=== PATIENT | male | born 1970 | race Caucasian/White ===

== ENCOUNTER 2016-09-21 09:45 | Inpatient (IN) | payer OTHER ==
[~2016-09-21] VITALS: Ht 170.2 cm; Wt 81.2 kg
[~2016-09-21 09:45] MED LIST: HYDROCODON-ACE1 EAC7 PO; TRAMADOL HCL50 MG PO; VOLTAREN75 MG PO; ZANAFLEX4 M1 PO
[2016-09-21 10:18] VITALS: BP 149/88
[2016-09-21 10:29] LABS: HEMATOCRIT 50.4 % (38.0-50.0); MCH 34.3 PG (29.0-34.0); MCHC 34.1 G/DL (30.0-36.0); MCV 100.6 FL (86-99); MEAN PLAT.VOLUME 8.9 uM^3 (9.0-12.4); PLATELET COUNT 263 K/uL (156-360); RBC DIS.WIDTH-CV 13.9 % (11.8-14.6); RBC DIS.WIDTH-SD 51.2 % (39-53); RED BLOOD COUNT 5.01 M/uL (4.00-5.50); WHITE BLOOD COUNT 5.8 K/uL (4.1-10.2)
[2016-09-21 10:48] LABS: PROTHROMBIN TIME 10.3 (9.2-11.2); PTT 24.5 (25-32)
[2016-09-21 15:29] VITALS: BP 131/84
[2016-09-21 19:59] VITALS: BP 127/89
[2016-09-21 20:14] VITALS: BP 165/71
[2016-09-22 00:12] VITALS: BP 143/77
[2016-09-22 04:46] VITALS: BP 160/76
[2016-09-22 08:10] VITALS: BP 132/87
== END 2016-09-22 12:14 | disposition home or self-care (01) | DRG 483 ==
LOC: 3EAST 09:45 → 2SOUTH 09:45 → 3EAST 14:47 → 2SOUTH 14:55 → 3EAST 09-22 12:14
PROVIDERS: Orthopaedic Surgery
PROC: 0RRJ0J6 Replacement of Right Shoulder Joint with Synthetic Substitute, Humeral Surface, Open Approach (ICD-10-PCS; principal; 2016-09-21)
DX: M19.011 Primary osteoarthritis, right shoulder (principal); M54.9 Dorsalgia, unspecified; F17.210 Nicotine dependence, cigarettes, uncomplicated
CPT/HCPCS: 85027; 85610; 85730; C1776; J0690; J1100; J2250; J2405; J2795; J3010; J7050; J7120; S0020

== ENCOUNTER 2017-07-26 15:53 | Emergency (ER) | payer OTHER ==
[~2017-07-26] VITALS: Ht 167.6 cm; Wt 81.9 kg
[2017-07-26] MEDS ORDERED: NAPROXEN500 MG PO (17:09)
[2017-07-26] MEDS ORDERED: PERCOCET 5/31 TABLET PO (17:09)
[2017-07-26 18:17] VITALS: BP 148/99
== END 2017-07-26 18:18 | disposition home or self-care (01) ==
LOC: EME 15:53
DX: S20.211A Contusion of right front wall of thorax, initial encounter (principal); W01.198A Fall on same level from slipping, tripping and stumbling with subsequent striking against other object, initial encounter; Z96.611 Presence of right artificial shoulder joint
CPT/HCPCS: 71046; 99281; 99283

== ENCOUNTER 2017-08-26 00:26 | Emergency (ER) | payer OTHER ==
[~2017-08-26] VITALS: Ht 167.6 cm; Wt 80.1 kg
[~2017-08-26 00:26] MED LIST changes: +NAPROXEN500 MG PO; +PERCOCET 5/31 TABLET PO
[2017-08-26 01:20] LABS: CHLORIDE 106 mEq/L (99-109); POTASSIUM 3.2 mEq/L (3.7-5.4); SODIUM 145 mEq/L (136-147)
[2017-08-26 01:21] LABS: GLUCOSE 92 mg/dL (70-99)
[2017-08-26 01:23] LABS: BASOPHIL (%) 0.9 % (0-1); BASOPHIL COUNT 0.1 K/uL (0-0.1); EOSINOPHIL (%) 1.1 % (0-5); EOSINOPHIL COUNT 0.1 K/uL (0-0.3); HEMATOCRIT 50.2 % (38.0-50.0); HEMOGLOBIN 18.2 G/DL (12.5-16.6); IMMATURE GRANULOCYTE (%) 0.6 % (0.0-0.7); LYMPHOCYTE (%) 39.8 % (15-42); LYMPHOCYTE COUNT 2.8 K/uL (1.0-2.8); MCH 37.8 PG (29.0-34.0); MCHC 36.3 G/DL (30.0-36.0); MCV 104.1 FL (86-99); MONOCYTE COUNT 0.3 K/uL (0-0.8); NEUTROPHIL (%) 53.6 % (45-76); NEUTROPHIL COUNT 3.8 K/uL (1.8-6.4); PLATELET COUNT 274 K/uL (156-360); RBC DIS.WIDTH-CV 13.9 % (11.8-14.6); RBC DIS.WIDTH-SD 54.1 % (39-53); RED BLOOD COUNT 4.82 M/uL (4.00-5.50)
[2017-08-26 01:25] LABS: CREATININE 0.8 mg/dL (0.6-1.3); GFR ESTIMATE (CALCULATED) > 59 mL/min/ (58.99-99999)
[2017-08-26 01:26] LABS: UREA NITROGEN (BUN) 6 mg/dL (9-23)
[2017-08-26] MEDS ORDERED: CLEOCIN300 MG PO (02:11)
[2017-08-26] MEDS ORDERED: MOTRIN800 MG PO (02:13)
[2017-08-26 02:31] VITALS: BP 124/89
== END 2017-08-26 02:32 | disposition home or self-care (01) ==
LOC: EME 00:26
DX: I80.8 Phlebitis and thrombophlebitis of other sites (principal); L03.114 Cellulitis of left upper limb; I82.622 Acute embolism and thrombosis of deep veins of left upper extremity; Z86.718 Personal history of other venous thrombosis and embolism; I10 Essential (primary) hypertension; F17.200 Nicotine dependence, unspecified, uncomplicated
CPT/HCPCS: 80048; 85025; 93971; 99281; 99284

== ENCOUNTER 2017-12-01 22:03 | Inpatient (IN) | payer OTHER ==
[~2017-12-01] VITALS: Ht 167.6 cm; Wt 76.3 kg
[~2017-12-01 22:03] MED LIST changes: +ASPIR 8181 M1 PO; +CLEOCIN300 MG PO; +MONOPRIL10 MG PO; +MOTRIN800 MG PO; +NEURONTIN300 MG PO
[2017-12-02 07:21] VITALS: BP 151/94
[2017-12-02 15:50] VITALS: BP 136/93
[2017-12-02 19:56] VITALS: BP 128/83
[2017-12-03 00:15] VITALS: BP 148/90
[2017-12-03 03:59] VITALS: BP 159/84
[2017-12-03 06:45] LABS: HEMATOCRIT 44.1 % (38.0-50.0); MCV 107.6 FL (86-99)
[2017-12-03 06:46] LABS: HEMOGLOBIN 14.9 G/DL (12.5-16.6)
[2017-12-03] MEDS ORDERED: OXYCODONE HCL5 MG PO (08:29)
[2017-12-03 08:34] VITALS: BP 130/79
== END 2017-12-03 13:00 | disposition home or self-care (01) | DRG 483 ==
LOC: ENRESERV 22:03 → 2SOUTH 12-02 07:01 → 3EAST 12-02 07:01 → 2SOUTH 12-02 11:11 → ENRESERV 12-02 13:49 → 3EAST 12-02 15:25 → 2SOUTH 12-02 16:01 → 3EAST 12-03 13:00
PROVIDERS: Orthopaedic Surgery
PROC: 0RRJ00Z Replacement of Right Shoulder Joint with Reverse Ball and Socket Synthetic Substitute, Open Approach (ICD-10-PCS; principal; 2017-12-02)
DX: T84.098A Other mechanical complication of other internal joint prosthesis, initial encounter (principal); Z96.611 Presence of right artificial shoulder joint; Y83.1 Surgical operation with implant of artificial internal device as the cause of abnormal reaction of the patient, or of later complication, without mention of misadventure at the time of the procedure; I10 Essential (primary) hypertension; M19.011 Primary osteoarthritis, right shoulder; F17.210 Nicotine dependence, cigarettes, uncomplicated; Z56.0 Unemployment, unspecified; J44.9 Chronic obstructive pulmonary disease, unspecified
CPT/HCPCS: 85014; 85018; J0330; J0690; J1100; J1170; J2250; J2405; J2795; J3010; J7030; J7050